=== PATIENT | female | born 1985 | race African-American/Black ===

== ENCOUNTER 2017-02-17 12:23 | Emergency (ER) | payer MEDICAID ==
[~2017-02-17] VITALS: Ht 167.6 cm; Wt 115.0 kg
[2017-02-17] MEDS ORDERED: ACETAMINOPHEN WITH CODEINE 300/30MG TABLET PO ONE ×2 (13:45→17:30)
[2017-02-17] MEDS ORDERED: KETOROLAC 60MG/2ML VIAL IM ONE (13:45)
[2017-02-17] MEDS ORDERED: METHOCARBAMOL 500MG TABLET PO ONE (13:45)
[2017-02-17 16:55] VITALS: BP 145/74
[2017-02-17] MEDS ORDERED: MORPHINE SULFATE 10 MG/ML CPJ IM ONE (17:45)
[2017-02-17] MEDS ORDERED: LORAZEPAM 2MG/ML CPJ IM ONE (17:45)
== END 2017-02-17 17:16 | disposition home or self-care (01) ==
LOC: ER 12:37
DX: M54.42 Lumbago with sciatica, left side (principal); M54.41 Lumbago with sciatica, right side; M54.16 Radiculopathy, lumbar region; E78.00 Pure hypercholesterolemia, unspecified
CPT/HCPCS: 81025; 96372; 99284; J1885; J2270

== ENCOUNTER 2017-05-13 05:02 | Emergency (ER) | payer MEDICAID ==
[~2017-05-13] VITALS: Ht 165.1 cm; Wt 141.0 kg
[2017-05-13 06:15] LABS: CLARITY URINE TURBID (CLEAR); COLOR URINE YELLOW (YELLOW); GLUCOSE URINE NEGATIVE (NEGATIVE); KETONES URINE NEGATIVE (NEGATIVE); LEUKOCYTE ESTERASE URINE 1+ (NEGATIVE); NITRITE URINE NEGATIVE (NEGATIVE); OCCULT BLOOD URINE 1+ (NEGATIVE); PH URINE 5.5 (4.5-8.0); PROTEIN URINE 1+ (NEGATIVE); SPECIFIC GRAVITY URINE 1.026 (1.005-1.030)
[2017-05-13] MEDS ORDERED: KETOROLAC 60MG/2ML VIAL IM STA (06:35)
[2017-05-13] MEDS ORDERED: CYCLOBENZAPRINE 10MG TABLET PO ONE (06:45)
[2017-05-13 07:12] LABS: BASOPHILS % 0.4 % (0.0-2.0); EOSINOPHILS % 2.3 % (0.0-5.0); HEMATOCRIT. 38.6 % (36.0-48.0); HEMOGLOBIN. 13.3 g/dL (12.0-16.0); LYMPHOCYTES % 20.2 % (20.0-50.0); MEAN CORPUSCULAR HEMOGLOBIN 31.1 pg (28.0-32.0); MEAN CORPUSCULAR VOLUME 90.4 fL (81.0-99.0); MEAN PLATELET VOLUME 7.6 fl (7.4-10.4); MONOCYTES % 6.3 % (2.0-8.0); NEUTROPHILS % 70.8 % (40.0-76.0); PLATELET 243 x1000/uL (130-400); RED BLOOD CELL COUNT 4.27 mill/uL (4.2-5.4); RED CELL DISTRIBUTION WIDTH 12.5 % (11.6-14.6)
[2017-05-13 07:20] LABS: CARBON DIOXIDE 28 mEq/L (21-32); CHLORIDE 104 mEq/L (98-107)
[2017-05-13 07:23] LABS: HCG SCREEN NEGATIVE
[2017-05-13 08:28] VITALS: BP 124/62
== END 2017-05-13 08:51 | disposition home or self-care (01) ==
LOC: ER 05:02
DX: N39.0 Urinary tract infection, site not specified (principal); M54.9 Dorsalgia, unspecified; F17.210 Nicotine dependence, cigarettes, uncomplicated; F12.10 Cannabis abuse, uncomplicated
CPT/HCPCS: 36415; 80053; 81001; 83690; 84703; 85025; 96372; 99284; J1885; Z7610